=== PATIENT | female | born 1995 | race Caucasian/White ===

== ENCOUNTER → 2019-07-09 | Outpatient (CLI) | payer BC ==
--- NOTE | 2019-07-09 12:47 | XR ---
EXAMINATION TYPE: XR chest 2V DATE OF EXAM: 07/09/2019 COMPARISON: NONE HISTORY: Costochondritis. Chest pain. TECHNIQUE: Frontal and lateral views of the chest are obtained. FINDINGS: There is no focal air space opacity, pleural effusion, or pneumothorax seen. The cardiac silhouette size is within normal limits. The osseous structures are intact. Dextroscoliosis of the thoracolumbar junction is partially visualized. IMPRESSION: No acute cardiopulmonary process.
== END | disposition home or self-care (01) ==
LOC: RADXRMAIN 12:32
PROVIDERS: ATTEND Family Medicine
DX: R06.02 Shortness of breath (principal); R52 Pain, unspecified
CPT/HCPCS: 71046

== ENCOUNTER → 2022-02-03 | Outpatient (CLI) | payer BC ==
--- NOTE | 2022-02-03 15:14 | XR ---
EXAMINATION TYPE: XR ankle complete RT DATE OF EXAM: 02/03/2022 COMPARISON: None HISTORY: Pain TECHNIQUE: 3 view right ankle FINDINGS: Ankle mortise is intact. Soft tissues are normal. No displaced fractures are evident.. Foll ow up exams can be performed 710 days of acute trauma for continued pain IMPRESSION: 1. No acute osseous abnormality right ankle.
--- NOTE | 2022-02-03 15:15 | XR ---
EXAMINATION TYPE: XR knee complete RT DATE OF EXAM: 02/03/2022 COMPARISON: None HISTORY: Pain TECHNIQUE: 3 view right knee FINDINGS: Joint space is preserved. No acute fracture or dislocation is evident. No joint effusion is evident. Follow up exams can be performed 7-10 days from acute trauma for continued pain. IMPRESSION: 1. No acute osseous abnormality right knee
== END | disposition home or self-care (01) ==
LOC: RADXRMAIN 13:58
PROVIDERS: ATTEND Nurse Practitioner Family
DX: M25.571 Pain in right ankle and joints of right foot (principal); M25.561 Pain in right knee

== ENCOUNTER 2023-10-11 10:00 | Day surgery (SDC) | payer BC ==
[~2023-10-11 10:00] MED LIST: DEXAMETHASONE SOD PHOSPHATE 4 MG/ML 1 ML VIAL ONE; ONDANSETRON 4 MG/2 ML VIAL ONE
[2023-10-11] MEDS ORDERED: LACTATED RINGERS 1,000 ML BAG ONE (11:00)
[2023-10-11] MEDS ORDERED: BUPIVACAINE (PF) 0.5% 30 ML VIAL ONE (11:00)
[2023-10-11] MEDS ORDERED: NEOSTIGMINE 1 MG/ML 10 ML VIAL ONE (11:04)
[2023-10-11] MEDS ORDERED: ROCURONIUM 10 MG/ML (5 ML VIAL) IV ONE (11:04)
[2023-10-11] MEDS ORDERED: fentaNYL (PF) 50 MCG/ML 2 ML AMP ONE (11:04)
[2023-10-11] MEDS ORDERED: LIDOCAINE 1% INJ 10MG/ML (20 ML MDV) ONE (11:04)
[2023-10-11] MEDS ORDERED: KETOROLAC 15 MG/ML 1 ML VIAL ONE (11:04)
[2023-10-11] MEDS ORDERED: PROPOFOL 10 MG/ML 20 ML VIAL IV ONE (11:04)
[2023-10-11] MEDS ORDERED: GLYCOPYRROLATE 0.2 MG/ML 2 ML VIAL ONE (11:04)
[2023-10-11] MEDS ORDERED: MIDAZOLAM 2 MG/2 ML VIAL ONE (11:04)
[2023-10-11] MEDS ORDERED: SUCCINYLCHOLINE CHLORIDE 200 MG/10 ML VIAL IV ONE (11:04)
== END 2023-10-11 13:59 ==
LOC: OR 10:00
PROVIDERS: ATTEND Obstetrics & Gynecology
DX: Z30.2 Encounter for sterilization (principal); K21.9 Gastro-esophageal reflux disease without esophagitis; F12.90 Cannabis use, unspecified, uncomplicated; Z79.899 Other long term (current) drug therapy; Z88.8 Allergy status to other drugs, medicaments and biological substances
CPT/HCPCS: 81025; 88302; 58661; J2250; J0330; J1100; J2710; J2405; J2001; J3010; J1885; J2704; J0665; J1596